=== PATIENT | male | born 1990 | race African-American/Black ===

== ENCOUNTER 2018-12-29 20:15 | Emergency (ER) | payer SELFPAY ==
[~2018-12-29] VITALS: Ht 170.2 cm; Wt 77.1 kg
[2018-12-29 20:24] VITALS: BP 121/73
[2018-12-29] MEDS ORDERED: AZIT250T6 PO (21:20)
[2018-12-29] MEDS ORDERED: METH4TAB2 PO (21:20)
--- NOTE | 2018-12-29 21:20 | PHYS DOC ---
Past Medical History Past Medical History: Asthma, Other Additional Past Medical Histor: Pt reports, "I have an anger problem" / Back pain (MELVINADRIAN M COMMUNICATIONS MAINTAINER) Past Surgical History: Tonsillectomy (MELVINADRIAN COMMUNICATIONS MAINTAINER) Alcohol Use: None Drug Use: Marijuana (MELVINADRIAN M COMMUNICATIONS MAINTAINER) Adult General Chief Complaint Chief Complaint: SORE THROAT [facility] HPI Patient is a 28 year old male who presents with cough, chest pain with cough, cold chills 1 week. (MELVINADRIAN M COMMUNICATIONS MAINTAINER) Review of Systems Review of Systems Constitutional: fever or chills [] Eyes: Denies change in visual acuity, redness, or eye pain [] HENT: Denies nasal congestion or sore throat [] Respiratory: cough or denies shortness of breath [] Cardiovascular: No additional information not addressed in HPI [] GI: Denies abdominal pain, nausea, vomiting, bloody stools or diarrhea [] : Denies dysuria or hematuria [] Musculoskeletal: Denies back pain or joint pain [] Integument: Denies rash or skin lesions [] Neurologic: Denies headache, focal weakness or sensory changes [] Endocrine: Denies polyuria or polydipsia [] All other systems were reviewed and found to be within normal limits, except as documented in this note. (MELVINADRIAN M COMMUNICATIONS MAINTAINER) Allergies Allergies Allergies Coded Allergies Type Severity Reaction Last Updated Verified Sulfa (Sulfonamide Antibiotics) Allergy Unknown 12/26/13 Yes (LUZ ELENA MOSELEY MD) Physical Exam Physical Exam Constitutional: Well developed, well nourished, no acute distress, non-toxic appearance. [] HENT: Normocephalic, atraumatic, bilateral external ears normal, oropharynx moist, no oral exudates, nose normal. [] Eyes: PERRLA, EOMI, conjunctiva normal, no discharge. [] Neck: Normal range of motion, no tenderness, supple, no stridor. [] Cardiovascular:Heart rate regular rhythm, no murmur [] Lungs & Thorax: Bilateral breath sounds clear to auscultation [] Abdomen: Bowel sounds normal, soft, no tenderness, no masses, no pulsatile masses. [] Skin: Warm, dry, no erythema, no rash. [] Back: No tenderness, no CVA tenderness. [] Extremities: No tenderness, no cyanosis, no clubbing, ROM intact, no edema. [] Neurologic: Alert and oriented X 3, normal motor function, normal sensory function, no focal deficits noted. [] Psychologic: Affect normal, judgement normal, mood normal. Normal physical exam [] (ADRIAN CHARLES APRN) Current Patient Data Vital Signs Vital Signs Date Time Temp Pulse Resp B/P (MAP) Pulse Ox O2 Delivery O2 Flow Rate FiO2 12/29/18 20:24 98.1 81 18 121/73 (89) 95 Room Air 98.1 (LUZ ELENA MOSELEY MD) EKG EKG [] (ADRIAN CHARLES APRN) Radiology/Procedures Radiology/Procedures [] (ADRIAN CHARLES APRN) Course & Med Decision Making Course & Med Decision Making Patient is a 28 year old male who presents with cough, chest pain with cough, cold chills 1 week. Patient states easily been taking NyQuil for his temp times. Alert and oriented. Speaks in full clear sentences. Lungs are clear to auscultation all lobes. Heart rate regular without murmur. Vital signs within normal limits. Afebrile. Abdomen soft and nontender. Patient denies nausea, vomiting, diarrhea, body aches, head pain, dizziness, shortness of air. Bilateral tympanic is pearly white. Throat is pink without exudates or swelling. Ambulatory with a steady gait. Patient has likely bronchitis or upper respiratory infection. Patients receive a prescription for Medrol Dosepak and azithromycin. Patient follow-up with his primary care provider this week. Patient is stable and in no distress. (ADRIAN CHARLES APRN) Course & Med Decision Making Staff Physician Addendum: I was working in the ER during the course of this patient's visit. I was available for consultation as needed, but I was not directly involved in the care of this patient. (LUZ ELENA MOSELEY MD) Dragon Disclaimer Dragon Disclaimer This electronic medical record was generated, in whole or in part, using a voice recognition dictation system. (ADRIAN CHARLES APRN) Departure Departure Impression: Primary Impression: Bronchitis Disposition: 01 HOME, SELF-CARE Condition: STABLE Referrals: NO PCP (PCP) Patient Instructions: Bronchitis Additional Instructions: Keep taking over the counter cold medications. Follow up with your doctor tomorrow. Drink plenty of fluids. Scripts Methylprednisolone (MEDROL) 4 Mg Tab.ds.pk 1 PKG PO UD, #1 PKG Prov: ADRIAN CHARLES APRN 12/29/18 Azithromycin (AZITHROMYCIN TABLET) 250 Mg Tablet 1 PKG PO UD, #6 TAB Prov: ADRIAN CHARLES APRN 12/29/18 ADRIAN CHARLES APRN Dec 29, 2018 21:20 LUZ ELENA MOSELEY MD Dec 31, 2018 00:31
== END 2018-12-29 21:29 | disposition home or self-care (01) ==
LOC: ER 20:15
DX: J45.909 Unspecified asthma, uncomplicated (principal); Z90.89 Acquired absence of other organs; Z88.2 Allergy status to sulfonamides
CPT/HCPCS: 99283